=== PATIENT | female | born 1975 | race Caucasian/White ===

== ENCOUNTER → 2020-11-26 | Outpatient (CLI) | payer OTHER | END | disposition home or self-care (01) | LOC: STAR 11-24 14:38 | PROVIDERS: ATTEND Obstetrics & Gynecology Female Pelvic Medicine and Reconstructive Surgery | DX: Z20.822 Contact with and (suspected) exposure to COVID-19 (principal); R10.2 Pelvic and perineal pain; N39.3 Stress incontinence (female) (male); N81.2 Incomplete uterovaginal prolapse; N94.6 Dysmenorrhea, unspecified; N92.6 Irregular menstruation, unspecified | CPT/HCPCS: U0003; U0005 ==

== ENCOUNTER 2020-11-30 09:23 | Day surgery (SDC) | payer OTHER ==
[~2020-11-30] VITALS: Ht 162.6 cm; Wt 68.6 kg
[~2020-11-30 09:23] MED LIST: BUPIVACAINE/PF 0.25% ONE; EPINEPHRINE 1 MG/ML, 1ML ONE; GENTAMICIN 80 MG/2 ML ONE; VANCOMYCIN 500 MG ONE
[2020-11-30] MEDS ORDERED: LACTATED RINGERS 1,000 ML IV SCH (10:00)
[2020-11-30] MEDS ORDERED: CHLORHEXIDINE 15 ML UDC PO ONE (10:00)
[2020-11-30] MEDS ORDERED: CHLORHEXIDINE 15 ML UDC ONE (10:03)
[2020-11-30 10:30] LABS: HCG UR SG 1.025 (1.003-1.030)
[2020-11-30 10:37] VITALS: BP 119/74
[2020-11-30] MEDS ORDERED: MIDAZOLAM 1 MG/ML, 2ML ONE ×2 (11:45→12:04)
[2020-11-30] MEDS ORDERED: FENTANYL PF 250 MCG/5ML ONE (11:45)
[2020-11-30] MEDS ORDERED: HYDROmorphone 1 MG/ML, 1ML INJ IVPush PRN (12:00)
[2020-11-30] MEDS ORDERED: MEPERIDINE/PF 25MG/0.5ML IVPush PRN (12:00)
[2020-11-30] MEDS ORDERED: ONDANSETRON 2MG/ML, 2ML IVPush PRN (12:00)
[2020-11-30] MEDS ORDERED: OXYcodone 5 MG/5 ML ORAL.SOL UDC PO PRN (12:00)
[2020-11-30] MEDS ORDERED: LORazepam 2 MG/ML, 1ML IVPush PRN (12:00)
[2020-11-30] MEDS ORDERED: METHOCARBAMOL 1,000 MG in DEXTROSE 5% 100 ML IV PRN (12:00)
[2020-11-30] MEDS ORDERED: FENTANYL PF 100 MCG/2ML IV PRN (12:00)
[2020-11-30] MEDS ORDERED: EPHEDRINE 50 MG/ML, 1ML IVPush PRN (12:00)
[2020-11-30] MEDS ORDERED: hydrALAzine 20 MG/ML, 1ML IV PRN (12:00)
[2020-11-30] MEDS ORDERED: LABETALOL 5MG/ML, 20ML IV PRN (12:00)
[2020-11-30] MEDS ORDERED: PROMETHAZINE 25 MG/ML, 1ML IVPush PRN (12:00)
[2020-11-30] MEDS ORDERED: ACETAMINOPHEN 325 MG TABLET PO PRN (12:00)
[2020-11-30] MEDS ORDERED: MEPERIDINE/PF 100 MG/ML ONE (12:52)
[2020-11-30] MEDS ORDERED: FENTANYL PF 100 MCG/2ML ONE (13:52)
[2020-11-30] MEDS ORDERED: OXYcodone 5 MG/5 ML ORAL.SOL UDC ONE (13:53)
[2020-11-30] MEDS ORDERED: NEOSTIGMINE 1 MG/ML, 10ML ONE (16:30)
[2020-11-30] MEDS ORDERED: DEXAMETHASONE 4 MG/ML, 1ML ONE (16:30)
[2020-11-30] MEDS ORDERED: KETOROLAC 30 MG/1 ML ONE (16:30)
[2020-11-30] MEDS ORDERED: ONDANSETRON 2MG/ML, 2ML ONE (16:30)
[2020-11-30] MEDS ORDERED: ROCURONIUM 10MG/ML,5ML ONE (16:30)
[2020-11-30] MEDS ORDERED: METOCLOPRAMIDE 5 MG/ML, 2ML ONE (16:30)
[2020-11-30] MEDS ORDERED: SUCCINYLCHOLINE 20 MG/ML, 10ML ONE (16:30)
[2020-11-30] MEDS ORDERED: PROPOFOL 10 MG/ML, 20ML ONE (16:30)
[2020-11-30] MEDS ORDERED: CEFAZOLIN 1,000 MG ONE (16:30)
[2020-11-30] MEDS ORDERED: GLYCOPYRROLATE 0.4 MG/2 ML, 2ML ONE (16:30)
== END 2020-11-30 15:40 | disposition home or self-care (01) ==
LOC: OUT 09:23
PROVIDERS: ATTEND Obstetrics & Gynecology Female Pelvic Medicine and Reconstructive Surgery
DX: N92.1 Excessive and frequent menstruation with irregular cycle (principal); N94.6 Dysmenorrhea, unspecified; N94.10 Unspecified dyspareunia; N81.89 Other female genital prolapse; N39.46 Mixed incontinence; N73.6 Female pelvic peritoneal adhesions (postinfective); N72 Inflammatory disease of cervix uteri; N87.9 Dysplasia of cervix uteri, unspecified; N81.11 Cystocele, midline; N81.5 Vaginal enterocele; N81.6 Rectocele; N13.5 Crossing vessel and stricture of ureter without hydronephrosis; J44.9 Chronic obstructive pulmonary disease, unspecified; F31.9 Bipolar disorder, unspecified; F41.9 Anxiety disorder, unspecified; F12.90 Cannabis use, unspecified, uncomplicated; Z79.899 Other long term (current) drug therapy
CPT/HCPCS: 57265; 57282; 57288; 58552; 81025; 88307; C1771; J0171; J0330; J0690; J1100; J1580; J1885; J2175; J2250; J2405; J2704; J2710; J2765; J3010; J3370; J7120